=== PATIENT | female | born 1995 | race Caucasian/White ===

== ENCOUNTER 2018-01-16 16:02 | Emergency (ER) | payer OTHER ==
[~2018-01-16] VITALS: Ht 165.1 cm; Wt 57.5 kg
[2018-01-16] MEDS ORDERED: PATANOL OP100 DROP/5 BOTH EYES (16:46)
[2018-01-16 17:01] VITALS: BP 125/86
== END 2018-01-16 17:01 | disposition home or self-care (01) ==
LOC: EME 16:02
DX: H10.10 Acute atopic conjunctivitis, unspecified eye (principal)
CPT/HCPCS: 99281; 99283